=== PATIENT | female | born 1960 | race Caucasian/White ===

== ENCOUNTER 2021-01-25 19:48 | Emergency (ER) | payer MEDICAID, MEDICARE ==
[2021-01-25] MEDS ORDERED: buPROPion 100 MG Tab PO ONE (21:03)
[2021-01-25] MEDS ORDERED: ClonazePAM 0.5 MG Tab PO ONE (21:03)
[2021-01-25] MEDS ORDERED: PARoxetine 20 MG Tab PO ONE (21:04)
--- NOTE | 2021-01-25 21:10 | EDM.PDOCBH ---
ED HPI GENERAL MEDICAL PROBLEM - General Chief Complaint: Behavioral/Psych Stated Complaint: MED [facility] Time Seen by Provider: 01/25/21 20:34 Source of Information: Reports: Patient History Limitations: Reports: No Limitations - History of Present Illness INITIAL COMMENTS - FREE TEXT/NARRATIVE: 60 yo female presents to ER via EMS she is visiting the area and forgot her medications at home in [place]. She did take her AM medications. She is emotional and crying. She is staying in [place]. crying in the room regarding not have transportation back to [place]. - Related Data Allergies Allergy/AdvReac Type Severity Reaction Status Date / Time Sulfa (Sulfonamide Allergy Rash Verified 01/25/21 20:00 Antibiotics) Home Meds: Home Meds ClonazePAM [KlonoPIN] 1 tab PO BID 01/25/21 [History] Fenofibrate 1 tab PO DAILY 01/25/21 [History] Levothyroxine Sodium [Levo-T] 1 tab PO DAILY 01/25/21 [History] PARoxetine [Paxil] 1 tab PO BID 01/25/21 [History] Topiramate [Topamax] 1 tab PO DAILY 01/25/21 [History] buPROPion HCL [Wellbutrin SR] 1 tab PO BID 01/25/21 [History] hydrOXYzine pamoate [Hydroxyzine Pamoate] 1 tab PO DAILY 01/25/21 [History] lamoTRIgine 1 tab PO DAILY 01/25/21 [History] traZODone 1 tab PO BEDTIME 01/25/21 [History] Past Medical History - Past Surgical History HEENT Surgical History: Reports: Tonsillectomy GI Surgical History: Reports: Cholecystectomy Female Surgical History: Reports: Oophorectomy Social & Family History - Tobacco Use Tobacco Use Status *Q: Never Tobacco User ED ROS GENERAL - Review of Systems Review Of Systems: See Below Constitutional: Denies: Fever, Chills Respiratory: Denies: Shortness of Breath, Wheezing Cardiovascular: Denies: Chest Pain Psychiatric: Reports: Anxiety ED EXAM, BEHAVIORAL HEALTH - Physical Exam Exam: See Below Exam Limited By: No Limitations General Appearance: Alert, WD/WN, Mild Distress Respiratory/Chest: No Respiratory Distress Neurological: Alert Psychiatric: Alert, Restless, Tearful, Agitated, Other (anxious here for medications.). No: Suicidal Thoughts COURSE, BEHAVIORAL HEALTH COMP - Course Orders, Labs, Meds: Medications Discontinued Medications Generic Name Dose Route Start Last Admin Trade Name [place] PRN Reason Stop Dose Admin Bupropion HCl 200 mg 01/25/21 21:03 Bupropion 100 Mg Tab PO 01/25/21 21:04 ONETIME ONE Clonazepam 0.5 mg 01/25/21 21:03 Clonazepam 0.5 Mg Tab PO 01/25/21 21:04 ONETIME ONE Paroxetine HCl 30 mg 01/25/21 21:04 Paroxetine 20 Mg Tab PO 01/25/21 21:05 ONETIME ONE Discharge vs Psych Eval/Treatment:: 01/25/21 21:12 plan was for pt to be given ynes's medications and prescriptions for all her medications until Wednesday. Departure - Departure Time of Disposition: 21:25 Disposition: Home, Self-Care 01 Condition: Good Clinical Impression: Medicaid coverage - Discharge Information *PRESCRIPTION DRUG MONITORING PROGRAM REVIEWED*: Not Applicable *COPY OF PRESCRIPTION DRUG MONITORING REPORT IN PATIENT LUZMARIA: Not Applicable Instructions: Panic Attack, [id number] Referrals: PCP,None [Primary Care Provider] - Additional Instructions: prescriptions given for all medications through Wednesday
== END 2021-01-25 21:41 | disposition home or self-care (01) ==
LOC: JP.ED 19:48 → EDSEX 19:48 → JP.ED 21:41
DX: F41.9 Anxiety disorder, unspecified (principal); Z88.2 Allergy status to sulfonamides; Z79.899 Other long term (current) drug therapy
CPT/HCPCS: 99283; A9270